=== PATIENT | female | born 1945 | race Caucasian/White ===

== ENCOUNTER 2017-10-27 12:45 | Emergency (ER) | payer OTHER ==
[2017-10-27 12:58] VITALS: BP 143/73; PULSE 97; TEMP 98.6; BMI 22.1
--- NOTE | 2017-10-27 14:50 | PDOC ---
History of Present Illness - General Chief Complaint: Back Pain Stated Complaint: BACK PAIN Time Seen by Provider: 10/27/17 14:04 History Source: Patient Exam Limitations: No Limitations - History of Present Illness Initial Comments: 10/27/17 15:11 CHIEF COMPLAINT: [Lower back pain] HISTORY OF PRESENT ILLNESS:[ 72]-year-old [female], history of CVA and hypertension patient reports that 2 weeks ago she fell sustained an injury to her lower back was started on tramadol, x-rays were performed possible compression fracture to lower lumbar area is awaiting approval for MRI has run out of pain medication now with pain 10 out of 10. Sharp and stabbing.[ Nonradiating pain, no neurosensory deficits, no bowel or bladder difficulty incontinence or urinary retention, no saddle anesthesia, no footdrop. No history of IVDU or history of cancer. Patient was instructed by a receptionist/telephone operator at her physician's office to come to emergency department for MRI. ] REVIEW OF SYSTEMS: GENERAL: Afebrile, denies any weakness RESPIRATORY: No cough, wheezing, or hemoptysis. CARDIAC: No chest pain or shortness of breath MUSCULOSKELETAL: Pain to generalized lower back. Pain to lower lumbar and sacral area SKIN : No erythema, no bruising, no deformity. GI/: Denies any abdominal pain, no urinary difficulty, incontinence or urinary retention. RECTAL: Denies any difficulty this A.m. NEUROLOGICAL: Denies any numbness or tingling. No neurosensory deficits. PHYSICAL EXAM: GENERAL: The patient is awake, alert, and fully oriented, in no acute distress. RESPIRATORY: Lungs clear bilaterally, no rhonchi wheezes or crackles CARDIAC: S1-S2 audible, no murmur rub or gallop MUSCULOSKELETAL: Pain to generalized lower back, nonradiating, no tingling or sensory deficit. Less than 2 second cap refill, +4 popliteal and pedal pulses. GI/: Abdomen soft, nontender, nondistended. No rebound tenderness. No masses palpable. MUSCULOSKELETAL: No spinal point tenderness. Normal reflexive and no deficits to sensation or strength. RECTAL: [Deferred patient with no neurological findings] SKIN: Warm, Dry, normal turgor, no erythema, no edema no bruising. Past History - Past Medical History Allergies/Adverse Reactions: Allergies Allergy/AdvReac Type Severity Reaction Status Date / Time Penicillins Allergy Verified 10/27/17 12:54 Home Medications: Ambulatory Orders Acetaminophen [Tylenol] 650 mg PO ASDIR 10/27/17 Oxycodone HCl/Acetaminophen [Percocet 5-325 mg Tablet] 1 - 2 tab PO Q4H #24 tablet MDD 10 10/27/17 Tramadol HCl [Ultram -] 50 mg PO Q8H 10/27/17 Cardiac Disorders: Yes (cad,angina) CVA: Yes (tia) COPD: No HTN: Yes Other medical history: back problems - Surgical History Appendectomy: Yes Cholecystectomy: Yes - Suicide/Smoking/Psychosocial Hx Smoking History: Current some day smoker Have you smoked in the past 12 months: Yes Number of Cigarettes Smoked Daily: 3 Information on smoking cessation initiated: Yes 'Breaking Loose' booklet given: 10/27/17 Hx Alcohol Use: No Drug/Substance Use Hx: No Substance Use Type: None *Physical Exam - Vital Signs Last Vital Signs Temp Pulse Resp BP Pulse Ox 98.6 F 97 H 18 143/73 100 10/27/17 12:55 10/27/17 12:55 10/27/17 12:55 10/27/17 12:55 10/27/17 12:55 Medical Decision Making - Medical Decision Making 10/27/17 15:14 A/P: Patient here for evaluation of lower back pain, I spoke to patients primary care doctor Dr. Marietta Landry. Patient has approval for MRI they will schedule her as an outpatient for an open MRI. They state that patient has a compression fracture and it is known there is no new neurological deficits. Pain is unchanged patient has been without pain medication but M.D. reports that patient states pain medication was not working we will start her on Percocet while in emergency department, follow-up at 12:15 tomorrow in office. They will instruct patient where to obtain the MRI. I will give patient prescription for Percocet with strict follow-up instructions. *DC/Admit/Observation/Transfer Diagnosis at time of Disposition: Compression fracture Pain, chronic Qualifiers: Chronic pain type: other chronic pain Qualified Code(s): G89.29 - Other chronic pain - Discharge Dispostion Disposition: HOME Condition at time of disposition: Stable Admit: No - Prescriptions Prescriptions: Oxycodone HCl/Acetaminophen [Percocet 5-325 mg Tablet] 1 - 2 tab PO Q4H #24 tablet MDD 10 - Referrals Referrals: Dileep Landry MD [Primary Care Provider] - - Patient Instructions Printed Discharge Instructions: Vertebral Compression Fracture Additional Instructions: Please follow-up with her primary care doctor tomorrow at 12:15 May take pain medication every 4 hours as needed for pain - Post Discharge Activity
== END 2017-10-27 15:28 | disposition home or self-care (01) ==
LOC: JERFT 12:45
DX: S32.9XXA Fracture of unspecified parts of lumbosacral spine and pelvis, initial encounter for closed fracture (principal); I25.119 Atherosclerotic heart disease of native coronary artery with unspecified angina pectoris; I10 Essential (primary) hypertension; Z86.73 Personal history of transient ischemic attack (TIA), and cerebral infarction without residual deficits; X58.XXXA Exposure to other specified factors, initial encounter; Y93.89 Activity, other specified; Y92.89 Other specified places as the place of occurrence of the external cause; Y99.8 Other external cause status
CPT/HCPCS: 99281-25

== ENCOUNTER → 2020-06-29 | Day surgery (SDC) | payer OTHER ==
--- NOTE | 2020-07-03 10:22 | OP ---
DATE OF OPERATION: 06/29/2020 PREOPERATIVE DIAGNOSIS: Right breast mass at 10 o'clock, 8 cm from the nipple and right axillary adenopathy. POSTOPERATIVE DIAGNOSIS: Right breast mass at 10 o'clock, 8 cm from the nipple and right axillary adenopathy. PROCEDURE: Right breast ultrasound-guided and right axillary node-guided core biopsies with clip placement. ANESTHESIA: Local. SURGEON: Tito Chong MD ESTIMATED BLOOD LOSS: Minimal. COMPLICATIONS: None. DETAILS OF PROCEDURE: The patient was made aware of the risks and benefits of the procedure and consented. The right breast mass was approached first. Under sterile conditions and 2% lidocaine for local anesthesia, a small luis was made in the skin. Using a 13-gauge suction biopsy device lateral approach under ultrasound guidance, multiple cores were obtained and submitted to pathology. Likewise, under ultrasound guidance a U-shaped clip was placed into the biopsy region well tolerated by the patient. Steri-Strip and a sterile bandage were applied. Right axillary node was then approached. Under sterile conditions with 2% lidocaine for local anesthesia, a small luis was made in the skin. Using a 13-gauge suction biopsy device via inferior approach under ultrasound guidance, multiple cores were obtained and submitted to pathology. Likewise, under ultrasound guidance the hydro marked barrel clip was placed into the biopsy region and well tolerated by the patient. Steri-Strip and a sterile dressing were applied. We will contact her with the results. TITO CHONG M.D. [id number]
--- NOTE | 2020-07-03 16:01 | PATH ---
Surgical Pathology Report Patient Name: ROLANDA EMERY [facility]. Rec. #: [id number] /Age/Gender: 1945 (Age: 75) / F Account: [id number] Location: [facility] RADIOLOGY U Taken: 06/29/2020 Received: 06/29/2020 Reported: 07/03/2020 Physicians: Tito Chong M.D. Specimen(s) Received A: RIGHT BREAST CORE BIOPSY 10:00 8CM FN B: RIGHT AXILLA Clinical History Palpable mass Ultrasound findings: Highly suspicious/malignant Final Diagnosis A. RIGHT BREAST 10:00, 8 CMFN, CORE BIOPSY: INVASIVE DUCTAL CARCINOMA, MODERATELY DIFFERENTIATED, MEASURING 0.8 CM IN LENGTH ON THIS SLIDE. Comment: Immunohistochemical stains performed and interpreted at [facility] show the following results: smooth muscle myosin heavy chain and p63 show loss of the myoepithelial cell layer in the areas of invasive carcinoma. E-cadherin shows diffuse membranous staining in the tumor cells, supports a ductal phenotype. Positive and negative controls (internal if applicable) show appropriate results. Reports for ER, ND, HER 2 and Ki-67 to follow. B. RIGHT AXILLARY LYMPH NODE, BIOPSY: LYMPH NODE TISSUE WITH METASTATIC CARCINOMA. EXTRANODAL EXTENSION OF THE TUMOR IDENTIFIED. Electronically Signed Jose Miguel Bhagat M.D. Addendum Reported: 07/04/2020 Addendum Diagnosis Results of ER and ND studies performed on this specimen (block A1) at [facility] are as follows: ER (clone [id number] mouse monoclonal antibody by [employer]): _x_ Positive: 100% nuclear staining with strong intensity PgR (clone16 mouse monoclonal antibody by [employer]): _x_ Negative (<1% nuclear staining) Results of Her2 (IHC) & Ki-67 studies performed on this specimen (block A1) at [place], [place] ([id number]) interpreted at [facility] are as follows: Her2 IHC (EP3 from [employer], formerly known as [id number], using Rich Polymer Refine detection kit): Negative (1+) Ki-67: ~10% (low proliferative index) Positive and negative controls (internal if applicable) show appropriate results. Formalin fixation and cold ischemic times are within current ASCO/CAP recommendations for ER, ND and Her2 testing. Jose Miguel Bhagat M.D. Gross Description A. Received in formalin labeled "right breast 10:00, 8 cmfn," is a 1.8 x 1.5 x 0.2 cm aggregate of multiple kumar-yellow, irregular to cylindrical portions of fibroadipose tissue admixed with blood clot. The formalin is filtered and the specimen is entirely submitted in one cassette. B. Received in formalin labeled "right axilla," is a 1.4 x 0.8 x 0.2 cm aggregate of multiple kumar-yellow, irregular to cylindrical portions of fibroadipose tissue. The formalin is filtered and the specimen is entirely submitted in one cassette. Time to formalin fixation: Less than one minute Total formalin fixation time: Approximately 7 hours. 06/29/2020 [facility]06/29/2020
== END | disposition home or self-care (01) ==
LOC: FRADUS-SUR 09:53
PROVIDERS: ATTEND Surgery Surgical Oncology
PROC: 0HBU3ZX Excision of Left Breast, Percutaneous Approach, Diagnostic (ICD-10-PCS; principal; 2020-06-29)
PROC: 07B53ZX Excision of Right Axillary Lymphatic, Percutaneous Approach, Diagnostic (ICD-10-PCS; 2020-06-29)
PROC: BH40ZZZ Ultrasonography of Right Breast (ICD-10-PCS; 2020-06-29)
DX: C50.411 Malignant neoplasm of upper-outer quadrant of right female breast (principal); C77.3 Secondary and unspecified malignant neoplasm of axilla and upper limb lymph nodes; N63.11 Unspecified lump in the right breast, upper outer quadrant; R59.9 Enlarged lymph nodes, unspecified
CPT/HCPCS: 19083; 76942-TC; 87899; 88305-TC; 88342-TC; A4648

== ENCOUNTER 2021-03-18 18:46 | Emergency (ER) | payer OTHER ==
[2021-03-18 19:11] VITALS: BP 152/75; PULSE 86; TEMP 98.9; BMI 21.2
[2021-03-18] MEDS ORDERED: ACETAMINOPHEN 325 MG TABLET (FP) PO ONE ×2 (19:47→20:39)
[2021-03-18] MEDS ORDERED: ACETAMINOPHEN 325 MG TABLET (FP) ONE ×2 (20:23→20:24)
[2021-03-18] MEDS ORDERED: LIDOCAINE 5% TOPICAL PATCH TP ONE (20:38)
[2021-03-18] MEDS ORDERED: LIDOCAINE 5% TOPICAL PATCH ONE (20:45)
[2021-03-18] MEDS ORDERED: LIDOCAINE PATCH REMOVAL MC ONE (22:00)
== END 2021-03-18 23:28 | disposition home or self-care (01) ==
LOC: JER 18:46
DX: S32.010A Wedge compression fracture of first lumbar vertebra, initial encounter for closed fracture (principal); S32.030A Wedge compression fracture of third lumbar vertebra, initial encounter for closed fracture
CPT/HCPCS: 72128-TC; 72131-TC; 72192-TC; 99285-25

== ENCOUNTER → 2021-05-01 | Day surgery (SDC) | payer OTHER ==
[~2021-05-01] MED LIST: ACETAMINOPHEN 325 MG TABLET (FP) PO ONE; SODIUM CHLORIDE 1,000 ML IV SCH; ZOLEDRONIC ACID 4 MG in SODIUM CHLORIDE 100 ML IVPB ONE
[2021-05-01 12:56] LABS: EOS % 1.3 % (0-4.5); HEMATOCRIT 37.7 % (32.4-45.2); HEMOGLOBIN 12.6 GM/dL (10.7-15.3); LYMPH % 15.2 % (8-40); MCH 32.1 pg (25.7-33.7); MCHC 33.5 g/dl (32.0-36.0); MEAN CELL VOLUME 95.8 fl (80-96); MEAN PLT VOLUME 7.8 fl (7.5-11.1); MONO % 8.5 % (3.8-10.2); PLATELET COUNT 326 10^3/uL (134-434); RBC 3.93 M/mm3 (3.60-5.2); RDW 14.1 % (11.6-15.6); WHITE BLOOD COUNT 7.5 K/mm3 (4.0-10.0)
[2021-05-01 13:21] LABS: BLOOD UREA NITROGEN 12.6 mg/dL (7-18)
[2021-05-01 13:23] LABS: CALCIUM 9.4 mg/dL (8.5-10.1)
[2021-05-01 13:27] LABS: CREATININE 0.6 mg/dL (0.55-1.3)
[2021-05-01 13:29] LABS: BILIRUBIN,TOTAL 0.4 mg/dL (0.2-1)
== END | disposition home or self-care (01) ==
LOC: JONCCHEMO 07:17
PROVIDERS: ATTEND Internal Medicine Hematology & Oncology
DX: Z53.8 Procedure and treatment not carried out for other reasons (principal)
CPT/HCPCS: 36415; 80053; 82306; 85025

== ENCOUNTER 2021-05-15 07:07 | Day surgery (SDC) | payer OTHER ==
[2021-05-15] MEDS ORDERED: DENOSUMAB 60 MG/ML DISP.SYRIN SQ ONE (12:15)
[2021-05-15 16:02] VITALS: BP 157/79; PULSE 87; TEMP 98.4
== END 2021-05-15 13:00 | disposition home or self-care (01) ==
LOC: JONCCHEMO 07:07
PROVIDERS: ATTEND Internal Medicine Hematology & Oncology
PROC: 3E013GC Introduction of Other Therapeutic Substance into Subcutaneous Tissue, Percutaneous Approach (ICD-10-PCS; principal; 2021-05-15)
DX: C50.911 Malignant neoplasm of unspecified site of right female breast (principal); Z76.89 Persons encountering health services in other specified circumstances
CPT/HCPCS: 96372; J0897

== ENCOUNTER 2021-07-15 15:54 | Inpatient (IN) | payer OTHER ==
[2021-07-15 17:56] LABS: BASO % 0.7 % (0-2.0); HEMATOCRIT 37.5 % (32.4-45.2); HEMOGLOBIN 12.7 GM/dL (10.7-15.3); LYMPH % 14.9 % (8-40); MCH 32.4 pg (25.7-33.7); MCHC 33.9 g/dl (32.0-36.0); MEAN CELL VOLUME 95.5 fl (80-96); MEAN PLT VOLUME 7.6 fl (7.5-11.1); NEUT % 75.4 % (42.8-82.8); PLATELET COUNT 320 10^3/uL (134-434); RBC 3.92 M/mm3 (3.60-5.2); RDW 13.5 % (11.6-15.6); WHITE BLOOD COUNT 7.2 K/mm3 (4.0-10.0)
[2021-07-15 18:19] LABS: CHLORIDE 104 mmol/L (98-107); SODIUM 140 mmol/L (136-145)
[2021-07-15 18:21] LABS: CALCIUM 9.3 mg/dL (8.5-10.1)
[2021-07-15 18:22] LABS: ANION GAP 6 MMOL/L (8-16); BLOOD UREA NITROGEN 9.9 mg/dL (7-18); CO2 30 mmol/L (21-32); GLUCOSE,RANDOM 97 mg/dL (74-106)
[2021-07-15 18:25] LABS: CREATININE 0.7 mg/dL (0.55-1.3); SGOT/AST 42 U/L (15-37); SGPT/ALT 31 U/L (13-61)
[2021-07-15 18:27] LABS: BILIRUBIN,TOTAL 0.5 mg/dL (0.2-1); TOT PROT 7.4 g/dl (6.4-8.2)
[2021-07-15 18:28] LABS: ALK PHOS 83 U/L (45-117)
[2021-07-15] MEDS ORDERED: ACETAMINOPHEN INJECTION 100 ML IVPB ONE (18:42)
[2021-07-15] MEDS ORDERED: HALOPERIDOL LACTATE 5 MG/ML IM ONE (21:04)
[2021-07-15] MEDS ORDERED: HALOPERIDOL LACTATE 5 MG/ML ONE (21:07)
[2021-07-15] MEDS ORDERED: ACETAMINOPHEN 325 MG TABLET (FP) PO PRN (22:50)
[2021-07-16] MEDS: FERROUS SO4 325 MG TABLET (FP) PO SCH ×2 (08:52→17:21)
[2021-07-16] MEDS ORDERED: PT OWN MED DRAWER 7, Y5N ONE ×3 (09:25→20:55)
[2021-07-16] MEDS: PANTOPRAZOLE 40 MG TABLET PO SCH (09:26)
[2021-07-16] MEDS: ENOXAPARIN NA (PORCINE) 40 MG/0.4 ML DISP.SYRIN SQ SCH ×2 (09:26→09:34)
[2021-07-16 09:32] LABS: BASO % 0.7 % (0-2.0); HEMATOCRIT 34.5 % (32.4-45.2); HEMOGLOBIN 11.9 GM/dL (10.7-15.3); LYMPH % 11.4 % (8-40); MCH 33.1 pg (25.7-33.7); MCHC 34.5 g/dl (32.0-36.0); MEAN CELL VOLUME 95.8 fl (80-96); MEAN PLT VOLUME 8.3 fl (7.5-11.1); MONO % 6.3 % (3.8-10.2); NEUT % 80.6 % (42.8-82.8); PLATELET COUNT 294 10^3/uL (134-434); RBC 3.61 M/mm3 (3.60-5.2); RDW 13.5 % (11.6-15.6); WHITE BLOOD COUNT 7.2 K/mm3 (4.0-10.0)
[2021-07-16 09:51] LABS: CALCIUM 8.9 mg/dL (8.5-10.1)
[2021-07-16 09:52] LABS: BLOOD UREA NITROGEN 11.3 mg/dL (7-18)
[2021-07-16 09:55] LABS: CREATININE 0.7 mg/dL (0.55-1.3)
[2021-07-16] MEDS: LETROZOLE 2.5 MG TABLET (FP) PO SCH (11:24)
[2021-07-16 15:03] LABS: EPI CELLS 2 /uL (0-25.1); HYALINE CASTS 0 /uL (0-3.1); URINE APPEARANCE CLEAR; URINE BACTERIA 108 /uL (0-1359); URINE BILIRUBIN NEGATIVE (NEGATIVE); URINE COLOR YELLOW; URINE GLUCOSE (UA) NEGATIVE (NEGATIVE); URINE KETONE NEGATIVE (NEGATIVE); URINE LEUK ESTERASE TRACE (NEGATIVE); URINE NITRITE NEGATIVE (NEGATIVE); URINE PROTEIN NEGATIVE (NEGATIVE); URINE RBC 11 /uL (0-23.9); URINE UROBILINOGEN 0.2 mg/dL (0.2-1.0); URINE WBC 8 /uL (0-25.8)
[2021-07-16] MEDS: ATORVASTATIN CA 20 MG TABLET (FP) PO SCH (21:01)
[2021-07-16] MEDS: risperiDONE 1 MG TABLET PO SCH (21:08)
[2021-07-17] MEDS: FERROUS SO4 325 MG TABLET (FP) PO SCH ×2 (08:45→17:29)
[2021-07-17 08:49] LABS: BASO % 1.2 % (0-2.0); EOS % 3.7 % (0-4.5); HEMATOCRIT 34.8 % (32.4-45.2); HEMOGLOBIN 11.9 GM/dL (10.7-15.3); MCH 32.9 pg (25.7-33.7); MCHC 34.1 g/dl (32.0-36.0); MEAN CELL VOLUME 96.4 fl (80-96); MEAN PLT VOLUME 8.2 fl (7.5-11.1); MONO % 9.6 % (3.8-10.2); NEUT % 67.5 % (42.8-82.8); PLATELET COUNT 287 10^3/uL (134-434); RBC 3.62 M/mm3 (3.60-5.2); RDW 13.2 % (11.6-15.6); WHITE BLOOD COUNT 5.9 K/mm3 (4.0-10.0)
[2021-07-17 09:09] LABS: CALCIUM 8.5 mg/dL (8.5-10.1)
[2021-07-17 09:10] LABS: ALBUMIN 3.4 g/dl (3.4-5.0); BLOOD UREA NITROGEN 13.4 mg/dL (7-18)
[2021-07-17 09:12] LABS: CREATININE 0.6 mg/dL (0.55-1.3)
[2021-07-17 09:13] LABS: BILIRUBIN,TOTAL 0.5 mg/dL (0.2-1)
[2021-07-17 09:14] LABS: TOT PROT 6.5 g/dl (6.4-8.2)
[2021-07-17] MEDS ORDERED: PT OWN MED DRAWER 7, Y5N ONE ×2 (09:59→21:08)
[2021-07-17] MEDS: PANTOPRAZOLE 40 MG TABLET PO SCH (10:03)
[2021-07-17] MEDS: ENOXAPARIN NA (PORCINE) 40 MG/0.4 ML DISP.SYRIN SQ SCH (10:03)
[2021-07-17] MEDS: LETROZOLE 2.5 MG TABLET (FP) PO SCH ×3 (10:04→21:20)
[2021-07-17] MEDS ORDERED: ALPRAZolam 0.25 MG TABLET PO PRN (10:46)
[2021-07-17] MEDS: risperiDONE 1 MG TABLET PO SCH ×2 (21:21→21:27)
[2021-07-17] MEDS: ATORVASTATIN CA 20 MG TABLET (FP) PO SCH ×2 (21:21→21:27)
[2021-07-18] MEDS: PANTOPRAZOLE 40 MG TABLET PO SCH (09:04)
[2021-07-18] MEDS: FERROUS SO4 325 MG TABLET (FP) PO SCH ×2 (09:04→18:39)
[2021-07-18] MEDS: ATORVASTATIN CA 20 MG TABLET (FP) PO SCH (21:52)
[2021-07-18] MEDS: LETROZOLE 2.5 MG TABLET (FP) PO SCH (21:52)
[2021-07-19] MEDS ORDERED: PT OWN MED DRAWER 7, Y5N ONE ×2 (09:00→22:26)
[2021-07-19] MEDS: PANTOPRAZOLE 40 MG TABLET PO SCH (09:06)
[2021-07-19] MEDS: FERROUS SO4 325 MG TABLET (FP) PO SCH ×2 (09:06→18:19)
[2021-07-19] MEDS: risperiDONE 0.25 MG TABLET PO SCH (11:27)
[2021-07-19] MEDS: ATORVASTATIN CA 20 MG TABLET (FP) PO SCH (22:27)
[2021-07-19] MEDS: LETROZOLE 2.5 MG TABLET (FP) PO SCH (22:31)
[2021-07-20] MEDS ORDERED: PT OWN MED DRAWER 7, Y5N ONE ×3 (09:03→21:26)
[2021-07-20] MEDS: FERROUS SO4 325 MG TABLET (FP) PO SCH ×2 (09:12→16:30)
[2021-07-20] MEDS: PANTOPRAZOLE 40 MG TABLET PO SCH (09:12)
[2021-07-20] MEDS: risperiDONE 0.25 MG TABLET PO SCH ×3 (11:03→16:30)
[2021-07-20] MEDS: ATORVASTATIN CA 20 MG TABLET (FP) PO SCH (21:32)
[2021-07-20] MEDS: LETROZOLE 2.5 MG TABLET (FP) PO SCH (21:33)
[2021-07-21] MEDS ORDERED: PT OWN MED DRAWER 7, Y5N ONE ×2 (10:14→21:03)
[2021-07-21] MEDS: PANTOPRAZOLE 40 MG TABLET PO SCH (10:26)
[2021-07-21] MEDS: risperiDONE 0.25 MG TABLET PO SCH (10:26)
[2021-07-21] MEDS: FERROUS SO4 325 MG TABLET (FP) PO SCH ×2 (10:26→18:35)
[2021-07-21] MEDS: ATORVASTATIN CA 20 MG TABLET (FP) PO SCH (21:05)
[2021-07-21] MEDS: LETROZOLE 2.5 MG TABLET (FP) PO SCH (21:06)
[2021-07-22] MEDS: risperiDONE 0.25 MG TABLET PO SCH (09:59)
[2021-07-22] MEDS: FERROUS SO4 325 MG TABLET (FP) PO SCH ×2 (09:59→17:15)
[2021-07-22] MEDS: PANTOPRAZOLE 40 MG TABLET PO SCH (09:59)
[2021-07-22] MEDS ORDERED: PT OWN MED DRAWER 7, Y5N ONE (21:16)
[2021-07-22] MEDS: LETROZOLE 2.5 MG TABLET (FP) PO SCH (21:20)
[2021-07-22] MEDS: ATORVASTATIN CA 20 MG TABLET (FP) PO SCH (21:20)
[2021-07-23] MEDS ORDERED: PT OWN MED DRAWER 7, Y5N ONE ×2 (09:48→21:00)
[2021-07-23] MEDS: risperiDONE 0.25 MG TABLET PO SCH (09:54)
[2021-07-23] MEDS: PANTOPRAZOLE 40 MG TABLET PO SCH (09:54)
[2021-07-23] MEDS: FERROUS SO4 325 MG TABLET (FP) PO SCH ×2 (09:54→17:45)
[2021-07-23] MEDS: ATORVASTATIN CA 20 MG TABLET (FP) PO SCH (21:10)
[2021-07-23] MEDS: LETROZOLE 2.5 MG TABLET (FP) PO SCH (21:11)
[2021-07-24 05:57] VITALS: TEMP 98
[2021-07-24 10:13] VITALS: BP 126/55; PULSE 90
[2021-07-24] MEDS: risperiDONE 0.25 MG TABLET PO SCH (10:17)
[2021-07-24] MEDS: PANTOPRAZOLE 40 MG TABLET PO SCH (10:17)
[2021-07-24] MEDS: FERROUS SO4 325 MG TABLET (FP) PO SCH (10:17)
== END 2021-07-24 12:25 | disposition home health service (06) | DRG 885 ==
LOC: JER 15:54 → JERBED 21:46 → J6S 07-16 04:11
PROVIDERS: ADMIT Internal Medicine; ATTEND Internal Medicine
DX: F23 Brief psychotic disorder (principal); N39.0 Urinary tract infection, site not specified; F02.81 Dementia in other diseases classified elsewhere, unspecified severity, with behavioral disturbance; I25.10 Atherosclerotic heart disease of native coronary artery without angina pectoris; I65.22 Occlusion and stenosis of left carotid artery; I10 Essential (primary) hypertension; G30.9 Alzheimer's disease, unspecified; Z86.73 Personal history of transient ischemic attack (TIA), and cerebral infarction without residual deficits; E78.5 Hyperlipidemia, unspecified; K21.9 Gastro-esophageal reflux disease without esophagitis; D64.9 Anemia, unspecified; G89.29 Other chronic pain
CPT/HCPCS: 36415; 70450-TC; 71045-TC-FY; 80048; 80053; 81003; 82550; 82553; 82607; 82746; 82962; 84443; 84484; 85025; 86780; 87086; 87186; 93005; 93010; 97116-GP; 97162-GP; 99285-25; C9803; J2794; U0003; U0005

== ENCOUNTER 2021-12-05 08:10 | Day surgery (SDC) | payer OTHER ==
[2021-12-05] MEDS ORDERED: DENOSUMAB 60 MG/ML DISP.SYRIN SQ ONE (10:00)
[2021-12-05 10:38] LABS: BASO % 0.9 % (0-2.0); EOS % 0.7 % (0-4.5); HEMATOCRIT 36.6 % (32.4-45.2); HEMOGLOBIN 12.6 GM/dL (10.7-15.3); LYMPH % 11.2 % (8-40); MCH 32.2 pg (25.7-33.7); MCHC 34.4 g/dl (32.0-36.0); MEAN CELL VOLUME 93.6 fl (80-96); MEAN PLT VOLUME 8.3 fl (7.5-11.1); MONO % 5.5 % (3.8-10.2); NEUT % 81.7 % (42.8-82.8); PLATELET COUNT 335 10^3/uL (134-434); RBC 3.91 M/mm3 (3.60-5.2); RDW 13.9 % (11.6-15.6); WHITE BLOOD COUNT 7.9 K/mm3 (4.0-10.0)
[2021-12-05 10:59] LABS: ALBUMIN 4.3 g/dl (3.4-5.0)
[2021-12-05 11:00] LABS: BLOOD UREA NITROGEN 12.2 mg/dL (7-18); CALCIUM 10.1 mg/dL (8.5-10.1)
[2021-12-05 11:02] LABS: CREATININE 0.7 mg/dL (0.55-1.3)
[2021-12-05 11:04] LABS: BILIRUBIN,TOTAL 0.4 mg/dL (0.2-1); TOT PROT 7.6 g/dl (6.4-8.2)
[2021-12-05 18:04] VITALS: BP 153/80; PULSE 84; TEMP 97.9
== END 2021-12-05 11:30 | disposition home or self-care (01) ==
LOC: JONCCHEMO 08:10
PROVIDERS: ATTEND Internal Medicine Hematology & Oncology
PROC: 3E013GC Introduction of Other Therapeutic Substance into Subcutaneous Tissue, Percutaneous Approach (ICD-10-PCS; principal; 2021-12-05)
DX: Z76.89 Persons encountering health services in other specified circumstances (principal); C50.911 Malignant neoplasm of unspecified site of right female breast
CPT/HCPCS: 36415; 80053; 85025; 96372; J0897